=== PATIENT | female | born 1965 | race Hispanic/Latino ===

== ENCOUNTER 2020-01-03 | Emergency (ER) | payer SELFPAY ==
[~2020-01-03] MED LIST: BENADRYL 50MG C50 MG OR
[2020-01-03 07:47] LABS: HEMATOCRIT 37.6 % (37.0-47.0); HEMOGLOBIN 12.5 g/dl (12.0-16.0); IMMATURE GRANULOCYTES 0.1 % (0.0-5.0); MEAN CORPUSCULAR HGB 30.3 pG CALC (26.0-32.0); MEAN CORPUSCULAR HGB CONC 33.2 g/L CALC (32.0-36.0); NEUT# 4.36 thou/uL (2.00-7.15); RED BLOOD COUNT 4.13 mill/uL (4.20-5.60); RED CELL DISTRI WIDTH 12.7 % (11.5-15.5)
[2020-01-03 07:59] LABS: URINE BILIRUBIN - DIPSTICK NEGATIVE (NEGATIVE); URINE BLOOD DIPSTICK NEGATIVE (NEGATIVE); URINE COLOR YELLOW; URINE GLUCOSE - DIPSTICK NEGATIVE (NEGATIVE); URINE KETONE NEGATIVE (NEGATIVE); URINE LEUK ESTERASE NEGATIVE (NEGATIVE); URINE NITRITE - DIPSTICK NEGATIVE (Negative); URINE PH 5.5 (4.5-8.0); URINE PROTEIN - DIPSTICK NEGATIVE (NEG-TRACE); URINE UROBILINOGEN - DIPSTICK 0.2 E.U./dL (0.2)
[2020-01-03 08:04] LABS: ALBUMIN 4.2 g/dL (3.2-5.0); BUN 13 mg/dL (7-17); BUN/CREATININE RATIO 36 (12-20 (CALC)); CHLORIDE 108 mmol/l (95-108); CREATININE 0.4 mg/dL (0.5-1.0); GFR > 60 ML/MIN (>=60 (CALC)); GFR FOR AFR.AMER. > 60 ML/MIN (>=60 (CALC)); LIPASE 79 u/l (23-300); POTASSIUM 4.1 mmol/l (3.5-5.1); SGOT/AST 42 u/l (14-36); TOTAL PROTEIN 7.5 g/dL (6.3-8.2)
[2020-01-03 08:05] LABS: ALKALINE PHOSPHATASE 98 u/l (38-126); ANION GAP 12 (6-22 (CALC)); BILIRUBIN, TOTAL 0.7 mg/dL (0.0-1.4); CARBON DIOXIDE 24 mmol/l (22-30); SODIUM 140 mmol/l (137-146)
[2020-01-03] MEDS ORDERED: CYCLOBENZAPR5 MG PO ×2 (09:18)
== END 2020-01-03 10:12 | disposition home or self-care (01) | DRG 552 ==
PROVIDERS: Family Medicine
DX: M62.830 Muscle spasm of back (principal)

== ENCOUNTER 2020-06-11 17:08 | Emergency (ER) | payer SELFPAY ==
[~2020-06-11] VITALS: Ht 137.2 cm; Wt 61.0 kg
[~2020-06-11 17:08] MED LIST changes: +CYCLOBENZAPR5 MG PO
[2020-06-11 18:02] LABS: URINE BILIRUBIN - DIPSTICK NEGATIVE (NEGATIVE); URINE BLOOD DIPSTICK NEGATIVE (NEGATIVE); URINE COLOR YELLOW; URINE GLUCOSE - DIPSTICK NEGATIVE (NEGATIVE); URINE KETONE NEGATIVE (NEGATIVE); URINE LEUK ESTERASE NEGATIVE (NEGATIVE); URINE NITRITE - DIPSTICK NEGATIVE (Negative); URINE PH 5.5 (4.5-8.0); URINE PROTEIN - DIPSTICK NEGATIVE (NEG-TRACE); URINE UROBILINOGEN - DIPSTICK 0.2 E.U./dL (0.2)
[2020-06-11 18:02] LABS: HEMATOCRIT 38.2 % (37.0-47.0); HEMOGLOBIN 12.6 g/dl (12.0-16.0); IMMATURE GRANULOCYTES 0.3 % (0.0-5.0); MEAN CELL VOLUME 89.3 fL CALC (80.0-100.0); MEAN CORPUSCULAR HGB 29.4 pG CALC (26.0-32.0); NEUT# 4.11 thou/uL (2.00-7.15); RED BLOOD COUNT 4.28 mill/uL (4.20-5.60); RED CELL DISTRI WIDTH 12.9 % (11.5-15.5)
[2020-06-11 18:20] LABS: ALBUMIN 4.5 g/dL (3.2-5.0); ALKALINE PHOSPHATASE 110 u/l (38-126); AMYLASE 65 u/l (30-110); ANION GAP 10 (6-22 (CALC)); BILIRUBIN, TOTAL 0.7 mg/dL (0.0-1.4); BUN 13 mg/dL (7-17); BUN/CREATININE RATIO 28 (12-20 (CALC)); CARBON DIOXIDE 24 mmol/l (22-30); CHLORIDE 106 mmol/l (95-108); CREATININE 0.5 mg/dL (0.5-1.0); GFR > 60 ML/MIN (>=60 (CALC)); GFR FOR AFR.AMER. > 60 ML/MIN (>=60 (CALC)); LIPASE 86 u/l (23-300); POTASSIUM 4.1 mmol/l (3.5-5.1); SGOT/AST 40 u/l (14-36); SODIUM 136 mmol/l (137-146); TOTAL PROTEIN 7.6 g/dL (6.3-8.2)
[2020-06-11] MEDS ORDERED: LEVSIN/SL0.125 MG SL ×2 (19:31)
[2020-06-11] MEDS ORDERED: PHENERGAN25 MG RE ×2 (19:31)
[2020-06-11 21:30] VITALS: BP 128/70
--- NOTE | 2020-06-14 08:42 | NUR ---
PRELIMINARY BLOOD CX RESULTS SHOW GRAM POSITIVE COCCI IN 1 SET, BOTH BOTTLES. LIKELY A CONTAMINANT PT WBC WERE WNL AND PT WAS AFEBRILE. SPOKE WITH DR GALVAN IN ER, ADVISED TO FOLLOW UP ONCE FINAL RESULTS AVAILABLE.
--- NOTE | 2020-06-15 13:39 | NUR ---
FINAL BLOOD CX RESULTS SHOWS STAPH EPIDERMIDIS, VERY LIKELY A CONTAMINANT. REPORTED RESULTS TO DR GALVAN, AGREES CONTAMINANT. NO NEED FOR FOLLOW UP AT THIS TIME.
== END 2020-06-11 21:30 | disposition home or self-care (01) | DRG 392 ==
LOC: ED 17:08
PROVIDERS: Student in an Organized Health Care Education/Training Program
DX: R10.13 Epigastric pain (principal); R11.2 Nausea with vomiting, unspecified; R51 Headache
CPT/HCPCS: Q9967

== ENCOUNTER 2020-08-25 13:14 | Emergency (ER) | payer SELFPAY ==
[~2020-08-25] VITALS: Ht 144.8 cm; Wt 61.4 kg
[~2020-08-25 13:14] MED LIST changes: +LEVSIN/SL0.125 MG SL; +PHENERGAN25 MG RE
[2020-08-25 14:50] LABS: HEMATOCRIT 39.4 % (37.0-47.0); HEMOGLOBIN 13.3 g/dl (12.0-16.0); IMMATURE GRANULOCYTES 0.3 % (0.0-5.0); MEAN CELL VOLUME 89.3 fL CALC (80.0-100.0); MEAN CORPUSCULAR HGB 30.2 pG CALC (26.0-32.0); MEAN CORPUSCULAR HGB CONC 33.8 g/dL CAL (32.0-36.0); NEUT# 4.4 thou/uL (2.00-7.15); RED BLOOD COUNT 4.41 mill/uL (4.20-5.60); RED CELL DISTRI WIDTH 12.9 % (11.5-15.5)
[2020-08-25 15:05] LABS: ALBUMIN 4.6 g/dL (3.2-5.0); ALKALINE PHOSPHATASE 131 u/l (38-126); ANION GAP 12 (6-22 (CALC)); BILIRUBIN, TOTAL 0.5 mg/dL (0.0-1.4); BUN 13 mg/dL (7-17); BUN/CREATININE RATIO 28 (12-20 (CALC)); CARBON DIOXIDE 24 mmol/l (22-30); CHLORIDE 105 mmol/l (95-108); CREATININE 0.5 mg/dL (0.5-1.0); GFR > 60 ML/MIN (>=60 (CALC)); GFR FOR AFR.AMER. > 60 ML/MIN (>=60 (CALC)); LIPASE 126 u/l (23-300); POTASSIUM 4.3 mmol/l (3.5-5.1); SGOT/AST 33 u/l (14-36); SODIUM 137 mmol/l (137-146)
[2020-08-25] MEDS ORDERED: FIORICET PO (16:10)
[2020-08-25] MEDS ORDERED: PEPCID20 MG PO (16:13)
[2020-08-25 16:23] VITALS: BP 138/71
== END 2020-08-25 17:29 | disposition home or self-care (01) | DRG 103 ==
LOC: ED 13:14
PROVIDERS: Student in an Organized Health Care Education/Training Program
DX: R51.9 Headache, unspecified (principal); K21.9 Gastro-esophageal reflux disease without esophagitis